=== PATIENT | male | born 1975 | race Two or more races ===

== ENCOUNTER 2016-09-05 15:34 | Emergency (ER) | payer MEDICAID ==
[~2016-09-05] VITALS: Ht 172.7 cm; Wt 61.2 kg
[~2016-09-05 15:34] MED LIST: ALPRAZOLAM0.25 MG ORAL; BENTYL10 MG ORAL; IBUPROFEN600 MG ORAL; NKM
[2016-09-05 15:50] VITALS: BP 116/74
[2016-09-05] MEDS ORDERED: CEPHALEXIN500 MG ORAL (16:37)
[2016-09-05] MEDS ORDERED: BACTRIM DS TAB1 EAC1 ORAL (16:37)
[2016-09-05] MEDS ORDERED: IBUPROFEN600 MG ORAL (16:37)
[2016-09-05 16:43] VITALS: BP 116/74
[2016-09-05] MEDS ORDERED: Bactrim DS (160mg/800mg) tab ORAL ONE (16:45)
[2016-09-05] MEDS ORDERED: Cephalexin 500mg cap ORAL ONE (16:45)
--- NOTE | 2016-09-05 20:13 | Emergency Room Report ---
History of Present Illness General Chief Complaint: General Complaint Source: Patient Present Illness HPI The patient is a 41-year-old male resenting for redness and pain to the left side of the face and eye. The patient first noticed redness and swelling of the left eyebrow 2 days prior which has now spread to the left upper eyelid. Pain is a 3/10 dull ache it is worse with touch. His noticed swelling of the upper eyelid. He denies changes in vision. He denies any discharge from the eye. He denies headache, fever, chills, or any other symptoms Allergies: Coded Allergies: No Known Allergies (Unverified , 02/23/14) Patient History Past Medical History: see triage record Pertinent Family History: none Reviewed Nursing Documentation: PMH: Agreed, PSxH: Agreed Nursing Documentation-PMH Past Medical History: No History, Except For Review of Systems All Other Systems: negative except mentioned in HPI Physical Exam Vital Signs Date Time Temp Pulse Resp B/P Pulse Ox O2 Delivery O2 Flow Rate FiO2 09/05/16 15:43 98.1 101 16 114/71 97 Room Air Sp02 EP Interpretation: reviewed, normal General Appearance: no apparent distress, alert, GCS 15, non-toxic Head: normocephalic, atraumatic Eyes: left eye lid inflammation, bilateral eye EOMI, bilateral eye PERRL ENT: hearing grossly normal, normal pharynx, no angioedema, normal voice Neck: full range of motion, supple/symm/no masses Musculoskeletal: back normal, gait/station normal, normal range of motion, non- tender Neurologic: alert, oriented x3, responsive, motor strength/tone normal, sensory intact, speech normal Psychiatric: judgement/insight normal, memory normal, mood/affect normal, no suicidal/homicidal ideation Skin: rash - erythema extending from L eyebrow to L upper eyelid Lymphatic: no adenopathy Medical Decision Making PA Attestation Dr. Odom is my supervising physician. Patient management was discussed with my supervising physician Diagnostic Impression: Primary Impression: Facial cellulitis ER Course The patient is a 41-year-old male resenting for redness and pain to the left side of the face and eye Ddx considered include but not limited to insect bite, contact dermatitis, eczema, cellulitis, Periorbital/orbital cellulitis PE: afebrile. NAD HEENT: There is erythema and edema which extends from the left upper eyebrow to the eyelid margin. Indurated mass over the mid left eyebrow. No discharge. No conjunctival injection. Extraocular movements intact bilaterally PERRL The patient is given antibiotics in the emergency department he'll be discharged with the same. ER precautions given Last Vital Signs Date Time Temp Pulse Resp B/P Pulse Ox O2 Delivery O2 Flow Rate FiO2 09/05/16 16:43 98.2 97 15 116/74 98 Room Air Status: improved Disposition: HOME, SELF-CARE Condition: Improved Scripts Trimethoprim/Sulfamethoxazole 160/800* (BACTRIM DS TABLET*) 1 Each Tablet 1 TAB ORAL TWICE A DAY, #14 TAB Prov: JUSTICE MIJARES.A. 09/05/16 Cephalexin* (KEFLEX*) 500 Mg Capsule 500 MG ORAL EVERY 6 HOURS, #28 CAP Prov: JUSTICE MIJARES P.A. 09/05/16 Ibuprofen* (MOTRIN*) 600 Mg Tablet 600 MG ORAL Q8H Y for For Pain, #30 TAB 0 Refills Prov: JUSTICE MIJARES P.A. 09/05/16 Patient Instructions: Cellulitis Additional Instructions: I discussed my findings with the patient. All questions and concerns have been answered. Treatment and medication compliance have been addressed. I advised the patient that they need to follow up with PMD in 3-5 days. Return to ED if symptoms worsen, new symptoms arise such as fever, or if needed for any reason. Patient verbalized understanding of discharge instructions. JUSTICE MIJARES Sep 05, 2016 20:13
== END 2016-09-05 16:45 | disposition home or self-care (01) ==
LOC: EMR 16:01
DX: L03.211 Cellulitis of face (principal)
CPT/HCPCS: 99284

== ENCOUNTER 2017-06-06 03:15 | Emergency (ER) | payer MEDICAID ==
[~2017-06-06] VITALS: Ht 172.7 cm; Wt 59.0 kg
[~2017-06-06 03:15] MED LIST changes: +BACTRIM DS TAB1 EAC1 ORAL; +CEPHALEXIN500 MG ORAL
[2017-06-06] MEDS ORDERED: SUBOXONE 8 MG-1 EAC2 SL (03:26)
[2017-06-06] MEDS ORDERED: Tubing IV Cassette IV ONE (03:41)
--- NOTE | 2017-06-06 03:43 | Emergency Room Report ---
History of Present Illness General Chief Complaint: Chest Pain Source: Patient Present Illness HPI This is a 42-year-old male was history of opium abuse. He presents with chief complaint of chest pain and left arm pain started tonight after an argument with his friend. Onset about an hour ago. Pain is sharp in nature. No nausea no vomiting. No fever or chills. No diaphoresis. No suicidal thoughts. He drove himself here. Denies any other complaint. Allergies: Coded Allergies: No Known Allergies (Unverified , 02/23/14) Patient History Past Medical History: see triage record, old chart reviewed Past Surgical History: other Pertinent Family History: none Social History: Reports: smoking, drug use - History of Immunizations: other Reviewed Nursing Documentation: PMH: Agreed; PSxH: Agreed Nursing Documentation-PMH History Of Psychiatric Problem: Yes - Substance abuse Review of Systems Eye: Denies: eye pain, blurred vision ENT: Denies: ear pain, nose congestion, throat swelling Respiratory: Denies: cough, shortness of breath Cardiovascular: Reports: chest pain; Denies: palpitations Gastrointestinal: Denies: abdominal pain, diarrhea, nausea, vomiting Musculoskeletal: Denies: back pain, joint pain Skin: Denies: rash Neurological: Denies: headache, numbness Endocrine: Denies: increased thirst, increased urine Hematologic/Lymphatic: Denies: easy bruising All Other Systems: negative except mentioned in HPI Physical Exam Vital Signs Date Time Temp Pulse Resp B/P (MAP) Pulse Ox O2 Delivery O2 Flow Rate FiO2 06/06/17 03:23 98.1 114 16 138/88 98 Room Air 98.1 vitals with tachycardia Sp02 EP Interpretation: reviewed, normal General Appearance: well appearing, no apparent distress, alert Head: normocephalic, atraumatic Eyes: bilateral eye PERRL, bilateral eye EOMI ENT: hearing grossly normal, normal pharynx Neck: full range of motion, supple, no meningismus Respiratory: chest non-tender, lungs clear, normal breath sounds Cardiovascular #1: regular rate, rhythm, no murmur, tachycardia Gastrointestinal: normal bowel sounds, non tender, no mass, no organomegaly, no bruit, non-distended Musculoskeletal: back normal, gait/station normal, normal range of motion Psychiatric: mood/affect normal Skin: warm/dry Medical Decision Making Diagnostic Impression: Primary Impression: Chest pain Qualified Codes: R07.9 - Chest pain, unspecified Additional Impression: Methamphetamine abuse ER Course Patient with atypical chest pain. Heart rate normalized to the 90s. No evidence of ACS, PE, dissection. He is positive for amphetamine. He claimed that he was at a green party and doesn't know how he got into his system. We'll discharge home. Lab Results Impression labs unremarkable EKG Diagnostic Results Rate: tachycardiac Rhythm: NSR ST Segments: no acute changes ASA given to the pt in ED: Yes Rhythm Strip Diag. Results Rhythm Strip Time: 03:43 EP Interpretation: yes Rate: 105 Rhythm: NSR, no PVC's, no ectopy Chest X-Ray Diagnostic Results Chest X-Ray Diagnostic Results : Chest X-Ray Ordered: Yes # of Views/Limited/Complete: 1 View Indication: Chest Pain EP Interpretation: Yes Interpretation: no consolidation, no effusion, no pneumothorax, no acute cardiopulmonary disease Impression: No acute disease Electronically Signed by: Kwaku St MD Last Vital Signs Date Time Temp Pulse Resp B/P (MAP) Pulse Ox O2 Delivery O2 Flow Rate FiO2 06/06/17 03:26 114 16 Room Air 06/06/17 03:23 98.1 138/88 98 98.1 Status: improved Disposition: HOME, SELF-CARE Condition: Stable Scripts Ibuprofen* (MOTRIN*) 600 Mg Tablet 600 MG ORAL THREE TIMES A DAY, #30 TAB 0 Refills Prov: KWAKU ST M.D. 06/06/17 Patient Instructions: Nonspecific Chest Pain Additional Instructions: Stop using drugs. Follow-up your doctor in 2-3 days if not better. Return if worse. KWAKU ST M.D. Jun 06, 2017 03:43
[2017-06-06] MEDS ORDERED: Aspirin Baby 81mg ORAL ONE (03:45)
[2017-06-06 03:54] LABS: BASOPHILS % (AUTO) 0.8 % (0.0-2.0); EOSINOPHILS % (AUTO) 0.2 % (0.0-3.0); HEMATOCRIT 44.4 % (42.0-52.0); HEMOGLOBIN 15.8 G/DL (14.2-18.0); LYMPHOCYTES % (AUTO) 18.9 % (20.0-45.0); MEAN CORPUSCULAR VOLUME 89 FL (80-99); MONOCYTES % (AUTO) 4.9 % (1.0-10.0); NEUTROPHILS % (AUTO) 75.3 % (45.0-75.0); PLATELET COUNT 201 K/UL (150-450); RED BLOOD COUNT 4.98 M/UL (4.70-6.10); WHITE BLOOD COUNT 9.7 K/UL (4.8-10.8)
[2017-06-06 03:56] LABS: APPEARANCE,URINE SLIGHTLY CLOUDY; BILIRUBIN, URINE NEGATIVE (NEGATIVE); COLOR,URINE PALE YELLOW; GLUCOSE, URINE (UA) NEGATIVE (NEGATIVE); KETONES,URINE NEGATIVE (NEGATIVE); LEUKOCYTE ESTERASE ,URINE NEGATIVE (NEGATIVE); NITRITE,URINE NEGATIVE (NEGATIVE); PH,URINE 5 (4.5-8.0); PROTEIN,URINE 2+ (NEGATIVE); UROBILINOGEN,URINE NORMAL MG/DL (0.0-1.0)
[2017-06-06 04:04] LABS: ANION GAP 8 mmol/L (5-15); BLOOD UREA NITROGEN 19 mg/dL (7-18); CARBON DIOXIDE 29 MMOL/L (21-32); CHLORIDE 104 MMOL/L (98-107); POTASSIUM 4.2 MMOL/L (3.5-5.1); SODIUM 141 MMOL/L (136-145)
[2017-06-06] MEDS ORDERED: Ketorolac 30mg Inj IV ONE (04:15)
[2017-06-06 04:17] LABS: ALANINE AMINOTRANSFERASE 32 U/L (12-78); ALBUMIN 4.2 G/DL (3.4-5.0); ALKALINE PHOSPHATASE 82 U/L (46-116); ASPARTATE AMINO TRANSFERASE 20 U/L (15-37); BILIRUBIN,TOTAL 0.3 MG/DL (0.2-1.0); CKMB < 0.5 NG/ML (0.0-3.6); CREATINE KINASE 75 U/L (26-308)
[2017-06-06] MEDS ORDERED: IBUPROFEN600 MG ORAL (04:18)
[2017-06-06 04:30] VITALS: BP 138/88
--- NOTE | 2017-06-06 17:13 | Diagnostic Imaging Report ---
. Indication: Pain Technique: XRAY Chest 1v. Comparison: 11/07/2015 Findings: The cardiomediastinal silhouette is stable. There are no acute infiltrates. No evidence of pleural fluid. The bony structures are unremarkable. Impression: No acute abnormality. No significant change from previous exam. .
== END 2017-06-06 04:30 | disposition home or self-care (01) ==
LOC: EMR 03:30
DX: R07.9 Chest pain, unspecified (principal); F15.10 Other stimulant abuse, uncomplicated
CPT/HCPCS: 36415; 71045; 80053; 80307; 81003; 82550; 82553; 84484; 85025; 93005; 96361; 96374; 99284; J1885